=== PATIENT | female | born 1990 | race Caucasian/White ===

== ENCOUNTER → 2023-02-19 23:29 | Outpatient (CLI) | payer MEDICAID, SELFPAY ==
[2023-02-19 19:55] LABS: Barbiturates Screen,Urine Negative ng/ml (<200)
[2023-02-19 19:56] LABS: Amphetamine/Metha Screen,Urine Negative ng/ml (<1000); Benzodiazepines Screen,Urine Positive ng/ml (<200)
[2023-02-19 19:57] LABS: Cannabinoid Screen,Urine Positive ng/ml (<50)
[2023-02-19 20:01] LABS: Methadone Screen,Urine Positive ng/ml (<300)
[2023-02-19 20:02] LABS: Cocaine Screen,Urine Negative ng/ml (<300)
[2023-02-19 20:03] LABS: Opiate Screen,Urine Negative ng/ml (<300); Phencyclidine Screen,Urine Negative ng/ml (<25)
== END ==
PROVIDERS: PCP Family Medicine; Visit Provider Family Medicine
DX: F11.21 Opioid dependence, in remission (principal)
CPT/HCPCS: 80305